=== PATIENT | female | born 1945 | race Caucasian/White ===

== ENCOUNTER 2018-01-17 21:09 | Emergency (ER) | payer OTHER ==
[~2018-01-17] VITALS: Ht 152.4 cm; Wt 61.2 kg
[~2018-01-17 21:09] MED LIST: ATENOLOL50 MG PO; ENALAPRIL MALEA10 MG NGT; GLUCOSAMINE CHO1 CA2 PO; HYDROCHLOROTH12.5 M1 PO; LORAZEPAM0.5 MG PO; SIMVASTATIN5 MG PO; VITAMIN B-122000 MCG PO; VITAMIN D400 UNI2 PO; ZOLOFT25 MG
[2018-01-17] MEDS ORDERED: TOPROL XL50 M1 (21:52)
[2018-01-17] MEDS ORDERED: LOSARTAN POTASS50 MG (21:53)
[2018-01-17] MEDS ORDERED: SYNTHROID50 MCG (21:53)
[2018-01-17] MEDS ORDERED: ARTHRITIS PAIN650 M1 (21:54)
[2018-01-18] MEDS ORDERED: CEFUROXIME500 MG PO (01:13)
[2018-01-18] MEDS ORDERED: URIN D.S. TABL1 EACH PO (01:13)
== END 2018-01-18 00:17 | disposition home or self-care (01) ==
LOC: ER 21:09
DX: N39.0 Urinary tract infection, site not specified (principal)

== ENCOUNTER 2018-10-12 20:28 | Emergency (ER) | payer OTHER ==
[~2018-10-12] VITALS: Ht 157.5 cm; Wt 59.9 kg
[~2018-10-12 20:28] MED LIST changes: +ARTHRITIS PAIN650 M1; +CEFUROXIME500 MG PO; +LOSARTAN POTASS50 MG; +SYNTHROID50 MCG; +TOPROL XL50 M1; +URIN D.S. TABL1 EACH PO
[2018-10-12] MEDS ORDERED: ATENOLOL50 MG (20:41)
== END 2018-10-12 23:50 | disposition home or self-care (01) ==
LOC: ER 20:28
DX: I16.0 Hypertensive urgency (principal); I10 Essential (primary) hypertension

== ENCOUNTER 2019-06-03 19:42 | Emergency (ER) | payer OTHER ==
[~2019-06-03] VITALS: Ht 152.4 cm; Wt 56.7 kg
[~2019-06-03 19:42] MED LIST changes: +ATENOLOL50 MG
== END 2019-06-03 21:35 | disposition home or self-care (01) ==
LOC: ER 19:42
DX: S40.022A Contusion of left upper arm, initial encounter (principal); W18.09XA Striking against other object with subsequent fall, initial encounter; Y93.89 Activity, other specified; Y92.018 Other place in single-family (private) house as the place of occurrence of the external cause; Y99.8 Other external cause status

== ENCOUNTER 2019-07-12 06:27 | Emergency (ER) | payer OTHER ==
[~2019-07-12] VITALS: Ht 157.5 cm; Wt 59.0 kg
[2019-07-12] MEDS ORDERED: COZAAR100 MG (06:47)
== END 2019-07-12 11:00 | disposition home or self-care (01) ==
LOC: ER 06:27
DX: M79.622 Pain in left upper arm (principal); R51 Headache; F06.4 Anxiety disorder due to known physiological condition

== ENCOUNTER 2019-07-13 16:10 | Emergency (ER) | payer OTHER ==
[~2019-07-13] VITALS: Ht 154.9 cm; Wt 56.7 kg
[~2019-07-13 16:10] MED LIST changes: +COZAAR100 MG
== END 2019-07-13 22:22 | disposition home or self-care (01) ==
LOC: ER 16:10
DX: I16.0 Hypertensive urgency (principal); I10 Essential (primary) hypertension

== ENCOUNTER 2019-08-05 13:42 | Outpatient (CLI) | payer OTHER | END 2019-08-05 13:51 | disposition home or self-care (01) | LOC: SONOGRAMA 13:42 → MAMO-SONO 14:15 | DX: M25.512 Pain in left shoulder (principal) ==

== ENCOUNTER 2019-09-06 07:16 | Outpatient (CLI) | payer OTHER | END 2019-09-06 15:00 | disposition home or self-care (01) | LOC: LAB 07:16 | DX: D64.89 Other specified anemias (principal); E88.89 Other specified metabolic disorders; D68.8 Other specified coagulation defects; N39.0 Urinary tract infection, site not specified; Z22.322 Carrier or suspected carrier of Methicillin resistant Staphylococcus aureus; I49.8 Other specified cardiac arrhythmias ==

== ENCOUNTER 2019-09-30 05:38 | Day surgery (SDC) | payer OTHER ==
[~2019-09-30 05:38] MED LIST changes: +[UNRECOGNIZED DRUG - OTHER] PO
== END 2019-09-30 16:25 | disposition home or self-care (01) ==
LOC: CIR.AMB 05:38
DX: M75.112 Incomplete rotator cuff tear or rupture of left shoulder, not specified as traumatic (principal); M75.22 Bicipital tendinitis, left shoulder; M65.812 Other synovitis and tenosynovitis, left shoulder

== ENCOUNTER 2019-10-20 07:43 | Outpatient (CLI) | payer OTHER | END 2019-10-20 07:47 | disposition home or self-care (01) | LOC: RAD 07:43 | DX: M54.5 Low back pain (principal); M25.551 Pain in right hip ==

== ENCOUNTER 2019-11-26 11:09 | Emergency (ER) | payer OTHER ==
[~2019-11-26] VITALS: Ht 160 cm; Wt 59.0 kg
== END 2019-11-26 16:53 | disposition home or self-care (01) ==
LOC: ER 11:09
DX: I16.0 Hypertensive urgency (principal); I10 Essential (primary) hypertension; R51 Headache

== ENCOUNTER 2019-12-11 02:08 | Emergency (ER) | payer OTHER ==
[~2019-12-11] VITALS: Ht 160 cm; Wt 59.0 kg
[2019-12-11] MEDS ORDERED: CATAPRES0.1 MG PO (04:25)
== END 2019-12-11 05:14 | disposition home or self-care (01) ==
LOC: ER 02:08
DX: I16.0 Hypertensive urgency (principal); I10 Essential (primary) hypertension

== ENCOUNTER 2020-02-03 14:12 | Outpatient (CLI) | payer OTHER ==
[~2020-02-03 14:12] MED LIST changes: +CATAPRES0.1 MG PO
== END 2020-02-03 14:29 | disposition home or self-care (01) ==
LOC: NUCLEAR 14:12
DX: M81.0 Age-related osteoporosis without current pathological fracture (principal)

== ENCOUNTER 2020-05-16 11:43 | Emergency (ER) | payer OTHER ==
[~2020-05-16] VITALS: Ht 160 cm; Wt 59.0 kg
[2020-05-16] MEDS ORDERED: ATORVASTATIN CA40 MG PO (11:53)
[2020-05-16] MEDS ORDERED: VALSARTAN320 MG PO (11:53)
[2020-05-16] MEDS ORDERED: CLONAZEPAM0.5 M1 PO (11:55)
== END 2020-05-16 14:40 | disposition home or self-care (01) ==
LOC: ER 11:43
DX: N20.0 Calculus of kidney (principal); N28.1 Cyst of kidney, acquired; R10.32 Left lower quadrant pain

== ENCOUNTER 2021-04-22 11:40 | Emergency (ER) | payer OTHER ==
[~2021-04-22] VITALS: Ht 160 cm; Wt 59.0 kg
[~2021-04-22 11:40] MED LIST changes: +ATORVASTATIN CA40 MG PO; +CLONAZEPAM0.5 M1 PO; +VALSARTAN320 MG PO
[2021-04-22] MEDS ORDERED: AMOX-CLAV 500-1 EACH PO (16:56)
[2021-04-22] MEDS ORDERED: CELEBREX100 MG PO (16:56)
== END 2021-04-22 17:27 | disposition home or self-care (01) ==
LOC: ER 11:40
DX: S63.286A Dislocation of proximal interphalangeal joint of right little finger, initial encounter (principal); S20.212A Contusion of left front wall of thorax, initial encounter; S00.83XA Contusion of other part of head, initial encounter; S60.222A Contusion of left hand, initial encounter; W18.09XA Striking against other object with subsequent fall, initial encounter; Y93.89 Activity, other specified; Y92.018 Other place in single-family (private) house as the place of occurrence of the external cause; Y99.8 Other external cause status

== ENCOUNTER 2022-11-06 11:22 | Outpatient (CLI) | payer OTHER ==
[~2022-11-06 11:22] MED LIST changes: +AMOX-CLAV 500-1 EACH PO; +CELEBREX100 MG PO
== END 2022-11-06 11:23 | disposition home or self-care (01) ==
LOC: MAMO-SONO 11:22
PROVIDERS: ATTEND Family Medicine
DX: N64.4 Mastodynia (principal)

== ENCOUNTER 2023-04-07 19:41 | Emergency (ER) | payer OTHER ==
[~2023-04-07] VITALS: Ht 160 cm; Wt 59.0 kg
== END 2023-04-07 22:50 | disposition home or self-care (01) ==
LOC: ER 19:41
DX: R05.9 Cough, unspecified (principal); Z20.822 Contact with and (suspected) exposure to COVID-19